=== PATIENT | female | born 1995 | race Caucasian/White ===

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

== ENCOUNTER 2018-09-24 15:21 | Emergency (ER) | payer OTHER ==
[~2018-09-24] VITALS: Ht 160 cm; Wt 52.6 kg
[~2018-09-24 15:21] MED LIST changes: +HYDR28.334 TP; +LORA10CA PO
[2018-09-24 15:22] VITALS: BP 113/77; PULSE 112; RESP 20; Ht 160 cm; Wt 52.6 kg
[2018-09-24] MEDS ORDERED: D-ME473S2 PO (15:57)
[2018-09-24] MEDS ORDERED: IBUP-1561 PO (15:57)
--- NOTE | 2018-09-24 15:59 | ERD ---
ER Documentation Chief Complaint Chief Complaint SANZ x3 days w/ flu like symptoms x2 days HPI 22-year-old female presents with headache and body aches and cough for last 2 days. She denies measured fevers. She has no history of vomiting, abdominal pain, diarrhea, urinary complaints, chest pain, shortness of breath. ROS All systems reviewed and are negative except as per history of present illness. Medications Home Meds Active Scripts Dextromethorphan Hb-Promethazine Hcl* (Promethazine DM* Syrup) 473 Ml Syrup, 5 ML PO Q6 PRN for COUGH for 5 Days, ML Prov:AGGIE BARTHOLOMEW MD 09/24/18 Ibuprofen* (Motrin*) 400 Mg Tab, 400 MG PO Q6, #15 TAB Prov:AGGIE BARTHOLOMEW MD 09/24/18 Loratadine* (Claritin*) 10 Mg Capsule, 10 MG PO DAILY, #30 CAP Prov:ZAHIRA STERN PA-C 12/29/16 Hydrocortisone (Hydrocortisone Cr) 28.35 Gm Cr, 28.35 GM TP BID for 7 Days Prov:ZAHIRA STERN PA-C 12/29/16 Acetaminophen with Codeine (Acetaminophen-Cod #3 Tablet) 1 Each Tablet, 1 TAB PO Q6H PRN for PAIN, #12 TAB Prov:AGGIE BARTHOLOMEW MD 02/10/16 Erythromycin* (Erythromycin* Ophthalmic) 1 Applic Oint, 1 APPLIC LEFT EYE QID for 7 Days, EA Prov:AGGIE BARTHOLOMEW MD 02/10/16 PMhx/Soc Medical and Surgical Hx: pt denies Medical Hx, pt denies Surgical Hx Hx Alcohol Use: No Hx Substance Use: No Hx Tobacco Use: No FmHx Family History: No diabetes, No coronary disease, No other Physical Exam Vitals Vital Signs Date Temp Pulse Resp B/P (MAP) Pulse Ox O2 O2 Flow FiO2 Time Delivery Rate 09/24/18 98.9 112 20 113/77 99 15:22 (89) Physical Exam Const: No acute distress Head: Atraumatic Eyes: Normal Conjunctiva ENT: Normal External Ears, Nose and Mouth. TMs and oropharynx normal. Neck: Full range of motion. No meningismus. Resp: Clear to auscultation bilaterally Cardio: Regular rate and rhythm, no murmurs Abd: Soft, non tender, non distended. Normal bowel sounds Skin: No petechiae or rashes Back: No midline or flank tenderness Ext: No cyanosis, or edema Neur: Awake and alert Psych: Normal Mood and Affect Procedures/MDM Patient presents with your symptoms and body aches and headache for the last 2 days. She is well-appearing and essentially has a normal exam. She has mild tachycardia, possibly due to stress response. She has no signs of hypoxemia, rest or distress, additional concerning signs or symptoms. Will treat with ibuprofen, Promethazine DM, primary care follow-up and return precautions. The patient was stable with no new complaints during the ER course. Clinically, there is no current evidence to suggest meningitis, sepsis, acute abdomen, pneumonia, stroke, acute coronary syndrome, pulmonary embolism, aortic dissection or any other emergent condition appearing to require further evaluation or hospitalization. Patient counseled regarding my diagnostic impression and care plan. Prior to discharge all questions answered. Pt agrees with treatment plan and understands strict return precautions. Pt is instructed to follow up with primary care provider within 24-48 hours. Precautionary instructions provided including instructions to return to the ER if not improving or for any worsening or changing symptoms or concerns. Disclaimer: Inadvertent spelling and grammatical errors are likely due to EHR/dictation software use and do not reflect on the overall quality of patient care. Also, please note that the electronic time recorded on this note does not necessarily reflect the actual time of the patient encounter. Departure Diagnosis: Primary Impression: URI (upper respiratory infection) URI type: unspecified URI Qualified Codes: J06.9 - Acute upper respiratory infection, unspecified Condition: Stable Patient Instructions: Uri, Viral, No Abx (Adult) Additional Instructions: Likely viral illness should resolve the next few days. Recheck for new worsening symptoms with primary care doctor. AGGIE BARTHOLOMEW MD Sep 24, 2018 15:59
== END 2018-09-24 16:09 | disposition home or self-care (01) ==
LOC: FTE 15:21
DX: J06.9 Acute upper respiratory infection, unspecified (principal)
CPT/HCPCS: 99283